=== PATIENT | female | born 1985 | race Caucasian/White ===

== ENCOUNTER 2018-10-12 16:00 | Emergency (ER) | payer OTHER ==
[~2018-10-12] VITALS: Ht 160 cm; Wt 95.3 kg
[2018-10-12] MEDS ORDERED: ZOLOFT100 MG PO (16:11)
== END 2018-10-12 22:49 | disposition home or self-care (01) ==
LOC: ER 16:00
DX: R10.11 Right upper quadrant pain (principal)

== ENCOUNTER 2018-10-28 15:34 | Emergency (ER) | payer OTHER ==
[~2018-10-28] VITALS: Ht 170.2 cm; Wt 113.4 kg
[~2018-10-28 15:34] MED LIST: ZOLOFT100 MG PO
[2018-10-28] MEDS ORDERED: ZANTAC 7575 MG (15:51)
== END 2018-10-28 20:52 | disposition home or self-care (01) ==
LOC: ER 15:34
DX: N83.292 Other ovarian cyst, left side (principal); D25.9 Leiomyoma of uterus, unspecified

== ENCOUNTER 2018-12-22 16:29 | Inpatient (IN) | payer OTHER ==
[~2018-12-22 16:29] MED LIST changes: +ZANTAC 7575 MG
[2018-12-25] MEDS ORDERED: PERCOCET 5-3251 EACH PO (08:21)
== END 2018-12-25 09:32 | disposition home or self-care (01) | DRG 743 ==
LOC: OB/GYN 12-23 05:37 → O/R 12-23 05:37 → OB/GYN 12-23 12:16 → SURH 12-23 15:08 → OB/GYN 12-25 09:32
PROVIDERS: Urology; ADMIT Specialist
PROC: 0UB90ZZ Excision of Uterus, Open Approach (ICD-10-PCS; 2018-12-23)
PROC: 0UB10ZZ Excision of Left Ovary, Open Approach (ICD-10-PCS; 2018-12-23)
PROC: 0UT90ZZ Resection of Uterus, Open Approach (ICD-10-PCS; principal; 2018-12-23 08:45)
PROC: 0UT90ZZ Resection of Uterus, Open Approach (ICD-10-PCS; 2018-12-23 08:45)
DX: N80.0 Endometriosis of uterus (principal); D25.9 Leiomyoma of uterus, unspecified; N83.292 Other ovarian cyst, left side; N73.6 Female pelvic peritoneal adhesions (postinfective)